=== PATIENT | female | born 1970 | race Caucasian/White ===

== ENCOUNTER → 2020-12-30 10:01 | Outpatient (REF) | payer OTHER, SELFPAY | LOC: HO.SL 10:01 | PROVIDERS: Visit Provider Psychiatry & Neurology Neurology | DX: G47.33 Obstructive sleep apnea (adult) (pediatric) (principal); R06.83 Snoring | CPT/HCPCS: 95806 ==

== ENCOUNTER 2021-09-08 12:26 | Outpatient (REF) | payer OTHER, SELFPAY | END 2021-09-08 12:27 | disposition home or self-care (01) | LOC: HO.10HDL 12:26 | PROVIDERS: Visit Provider Internal Medicine Endocrinology, Diabetes & Metabolism | DX: Z13.89 Encounter for screening for other disorder (principal) ==

== ENCOUNTER 2021-09-09 07:14 | Outpatient (REF) | payer OTHER, SELFPAY ==
[2021-09-09 10:46] LABS: Estimated Average Glucose 160 mg/dL; Hemoglobin A1c % 7.2 %
[2021-09-09 11:28] LABS: Creatinine Urine 61.17 mg/dL; Microalbumin Urine < 5.0 mg/L
[2021-09-09 14:10] LABS: Alanine Aminotransferase 132 U/L (0-31); Albumin Level 4.1 g/dL (3.5-5.0); Alkaline Phosphatase 464 U/L (39-117); Anion Gap 14 (12-20); Aspartate Amino Transferase 85 U/L (5-31); Bilirubin Total 0.7 mg/dL (0.0-1.0); Blood Urea Nitrogen 12 mg/dL (9-16); Calcium 9.6 mg/dL (8.4-10.2); Carbon Dioxide 27 mmol/L (22-29); Chloride 101 mmol/L (96-108); Cholesterol 229 mg/dL; Estimated Glomerular Filt Rate > 60; Glucose Random 126 mg/dL (60-115); HDL Cholesterol 46 mg/dL; LDL Cholesterol Calculated 159 mg/dl; Sodium 138 mmol/L (135-145); Total Protein 7.3 g/dL (6.5-8.0); Triglycerides 121 mg/dL
[2021-09-11 02:17] LABS: C Peptide 2.74 ng/mL (0.80-3.85)
== END 2021-09-09 07:15 | disposition home or self-care (01) ==
LOC: HO.10HDL 07:14
PROVIDERS: Visit Provider Internal Medicine Endocrinology, Diabetes & Metabolism
DX: E11.9 Type 2 diabetes mellitus without complications (principal)
CPT/HCPCS: 36415; 80053; 80061; 82043; 83036; 84681

== ENCOUNTER → 2021-12-21 11:01 | Outpatient (BNVA) | payer OTHER, SELFPAY | PROVIDERS: PCP Internal Medicine | DX: Z13.89 Encounter for screening for other disorder (principal) | CPT/HCPCS: 36415; 84450; 84460; 86803; 87389; 99203 ==

== ENCOUNTER 2022-01-14 08:05 | Outpatient (REF) | payer OTHER, SELFPAY ==
[2022-01-14 11:38] LABS: Alanine Aminotransferase 54 U/L (0-31); Albumin Level 4.1 g/dL (3.5-5.0); Alkaline Phosphatase 465 U/L (39-117); Anion Gap 14 (12-20); Aspartate Amino Transferase 45 U/L (5-31); Bilirubin Total 0.8 mg/dL (0.0-1.0); Blood Urea Nitrogen 10 mg/dL (9-16); Calcium 9.2 mg/dL (8.4-10.2); Carbon Dioxide 28 mmol/L (22-29); Chloride 101 mmol/L (96-108); Cholesterol 261 mg/dL; Estimated Glomerular Filt Rate > 60; Glucose Fasting 148 mg/dL (60-99); HDL Cholesterol 66 mg/dL; LDL Cholesterol Calculated 177 mg/dl; Potassium 4.7 mmol/L (3.3-5.1); Sodium 138 mmol/L (135-145); Total Protein 7.4 g/dL (6.5-8.0); Triglycerides 92 mg/dL
[2022-01-14 11:59] LABS: Creatinine Urine 76.18 mg/dL; Microalbumin Urine < 5.0 mg/L
[2022-01-16 17:31] LABS: C Peptide 2.42 ng/mL (0.80-3.85)
== END 2022-01-14 08:06 | disposition home or self-care (01) ==
LOC: HO.10HDL 08:05
PROVIDERS: Visit Provider Internal Medicine Endocrinology, Diabetes & Metabolism
DX: E11.9 Type 2 diabetes mellitus without complications (principal)
CPT/HCPCS: 36415; 80053; 80061; 82043; 84681

== ENCOUNTER 2022-03-11 09:40 | Outpatient (REF) | payer OTHER, SELFPAY ==
--- NOTE | ~2022-03-11 | XR_ITS ---
EXAMINATION: BILATERAL KNEE X-RAY CLINICAL INFORMATION: Pain COMPARISON: None TECHNIQUE: 3 views of each knee FINDINGS: Right: Bone alignment is normal. No fracture or dislocation is seen. There are mild degenerative changes at the patellofemoral joint. There may be slight lateral tilt of the patella. There is no joint effusion. Left: Bone alignment is normal. No fracture or dislocation is seen. There are mild degenerative changes at the patellofemoral joint. There is no joint effusion. XR/XR knee standing BI IMPRESSION: Mild degenerative changes at the patellofemoral joints, right greater than left.
--- NOTE | ~2022-03-11 | XR_ITS ---
EXAMINATION: BILATERAL KNEE X-RAY CLINICAL INFORMATION: Pain COMPARISON: None TECHNIQUE: 3 views of each knee FINDINGS: Right: Bone alignment is normal. No fracture or dislocation is seen. There are mild degenerative changes at the patellofemoral joint. There may be slight lateral tilt of the patella. There is no joint effusion. Left: Bone alignment is normal. No fracture or dislocation is seen. There are mild degenerative changes at the patellofemoral joint. There is no joint effusion. XR/XR knee LT 2V IMPRESSION: Mild degenerative changes at the patellofemoral joints, right greater than left.
--- NOTE | ~2022-03-11 | XR_ITS ---
EXAMINATION: BILATERAL KNEE X-RAY CLINICAL INFORMATION: Pain COMPARISON: None TECHNIQUE: 3 views of each knee FINDINGS: Right: Bone alignment is normal. No fracture or dislocation is seen. There are mild degenerative changes at the patellofemoral joint. There may be slight lateral tilt of the patella. There is no joint effusion. Left: Bone alignment is normal. No fracture or dislocation is seen. There are mild degenerative changes at the patellofemoral joint. There is no joint effusion. XR/XR knee RT 2V IMPRESSION: Mild degenerative changes at the patellofemoral joints, right greater than left.
== END 2022-03-11 09:41 | disposition home or self-care (01) ==
LOC: HO.HOSX 09:40
PROVIDERS: Visit Provider Orthopaedic Surgery
DX: M17.0 Bilateral primary osteoarthritis of knee (principal)
CPT/HCPCS: 20610; 73560; 73565; J1100

== ENCOUNTER 2022-05-31 08:25 | Outpatient (REF) | payer MEDICAID, SELFPAY ==
--- NOTE | ~2022-05-31 | US_ITS ---
EXAMINATION: US LOWER EXTREMITY VENOUS (REFLUX EXAM), BILATERAL CLINICAL INDICATION: This is a 52-year-old female with venous insufficiency and reflux. Swelling and pain. Varicose veins. COMPARISON: None. TECHNIQUE: Color flow triplex imaging and compression Doppler was performed to evaluate both the deep and the superficial systems bilaterally. To evaluate the superficial system, the examination was performed in the upright position. Color-flow Doppler ultrasound and compression ultrasound were utilized. In addition, maneuvers were utilized to demonstrate reflux. FINDINGS: 1. DEEP VENOUS ULTRASOUND OF THE RIGHT LOWER EXTREMITY: Common Femoral Vein: Compressible, normal respiratory variation and augmented flow. Femoral vein: Compressible, but with reflux of 916 ms. Popliteal Vein: Compressible, normal augmentation. Deep Reflux: There is evidence of reflux in the deep system in either the common femoral vein or the popliteal vein. There is no evidence of a Shepherd's cyst. 2. SUPERFICIAL ULTRASOUND WITH DOPPLER OF RIGHT LOWER EXTREMITY: GREAT SAPHENOUS VEIN: Saphenofemoral Junction: 0.6 cm. The reflux time is 764 ms. Proximal thigh: 0.4 cm. There is no reflux. Mid Thigh: 0.2 cm. There is no reflux. Above Knee: 0.2 cm. There is no reflux. Below Knee: 0.4 cm. The reflux time is 1540 ms per Mid Calf: 0.2 cm. There is no reflux Ankle: 0.3 cm. There is no reflux. GSV REFLUX: There is reflux at the saphenofemoral junction and then isolated below the knee, respectively. 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 Reflux is seen throughout the thigh and down into the calf. This duplicated lateral great saphenous vein is supplying the varicose veins. SMALL SAPHENOUS VEIN: Proximal: 0.5 cm. The reflux time is 2832 ms. Distal: 0.2 cm. There is no reflux. SSV REFLUX: There is reflux at the junction. VEIN OF GIACOMINI: None Imaged. PERFORATORS: None Imaged VARICOSITIES: There are multiple 0.4 cm, 0.7 cm varicose veins with the reflux in the thigh and calf. 3. DEEP VENOUS ULTRASOUND OF THE LEFT LOWER EXTREMITY: Common Femoral Vein: Compressible, normal respiratory variation and augmented flow. Femoral Vein: Compressible, but with reflux of 1104 ms. Popliteal Vein: Compressible, but with reflux of 892 ms. Deep Reflux: There is evidence of reflux in the deep system in either the common femoral vein or the popliteal vein. There is no evidence of a Shepherd's cyst. 4. SUPERFICIAL ULTRASOUND WITH DOPPLER OF LEFT LOWER EXTREMITY: GREAT SAPHENOUS VEIN: Saphenofemoral Junction: 0.7 cm. There is no reflux. Proximal thigh: 0.4 cm. The reflux time is 2580 ms per Mid Thigh: 0.4 cm. The reflux time is 1904 ms per Above Knee: 0.2 cm. The reflux time is 2144 ms. Below Knee: 0.4 cm. The reflux time is 980 ms. Mid Calf: 0.1 cm. There is no reflux. Ankle: 0.2 cm. There is no reflux. GSV REFLUX: There is evidence of proximal reflux as noted. DUPLICATED GREAT SAPHENOUS VEIN: There is a 0.3 cm duplicated lateral great saphenous vein with greater than 2 seconds of reflux. SMALL SAPHENOUS VEIN: Proximal: 0.2 cm. There is no reflux at the junction. There is reflux in the mid calf. Distal: 0.2 cm SSV REFLUX: There is isolated mid calf reflux. VEIN OF GIACOMINI: None Imaged. PERFORATORS: None Imaged VARICOSITIES: There are multiple 0.4 cm and 0.3 cm and 0.7 cm, respectively varicose veins in the thigh and calf. These appear supplied by the great saphenous vein. US/US venous duplex LE BI IMPRESSION: 1. There is a patent right great saphenous vein with reflux at the junction. 2. 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 3. There are multiple varicose veins off the duplicated lateral right great saphenous vein with reflux. 4. There is a patent right small saphenous vein with reflux at the junction. 5. There is a patent left great saphenous vein with reflux in the proximal thigh. 6. There is a patent duplicated left lateral great saphenous vein with reflux at the junction. 7. There is a patent left small saphenous vein with mid calf reflux. 8. There are multiple varicose veins on the left supplied by the great saphenous vein.
== END 2022-05-31 08:26 | disposition home or self-care (01) ==
LOC: HO.US 08:25
PROVIDERS: Visit Provider Surgery Vascular Surgery
DX: I83.893 Varicose veins of bilateral lower extremities with other complications (principal)
CPT/HCPCS: 93970